=== PATIENT | male | born 1985 | race Caucasian/White ===

== ENCOUNTER → 2016-07-15 | Day surgery (SDC) | payer BC ==
[2016-07-14 10:27] VITALS: BMI 23.0
[~2016-07-15] VITALS: Ht 177.8 cm; Wt 72.7 kg
[~2016-07-15] MED LIST: LIDOCAINE HCL 2% 2 ML VIAL (20MG/ML) ONE; MESA1.2T PO; MIDAZOLAM HCL 1 MG/ML 2ML VIAL ONE; MULT-506 PO; ONDANSETRON INJ 2 MG/ML 2 ML VIAL ONE; PRED10TA PO; PROPOFOL IV EMULSION 10 MG/ML 20 ML VIAL IV ONE
[2016-07-15 13:51] VITALS: Ht 177.8 cm; Wt 72.7 kg
[2016-07-15 13:57] VITALS: TEMP 36.9
--- NOTE | 2016-07-15 14:44 | Endo History and Physical ---
History & Physical Date of Service: Jul 15, 2016. Chief Complaint: Hx dis of intestines, diarrhea Referring Physician: Dr. Linares History of Present Illness For Colonoscopy Past Surgical History Hx Cardiac Surgery: No Hx Internal Defibrillator: No Hx Pacemaker: No Hx Abdominal Surgery: No Hx of Implantable Prosthesis: No Hx Post-Op Nausea and Vomiting: No Hx Cancer Surgery: No Hx Thoracic Surgery: No Hx Orthopedic: No Hx Urinary Tract Surgery: No Family History None Social History Smoking Status: Never Smoker Hx Substance Use: No Hx Alcohol Use: Yes (SOCIALLY ON WEEKENDS) Allergies Coded Allergies: No Known Allergies (Verified , 07/15/16) Current Medications Reported Home Medications Medications Dose Route/Sig Max Daily Dose Days Date Category Dose Instructions Multivitamin (Multivitamins) Tab 1 Tab PO QAM 07/14/16 Reported Prednisone 10 Mg Tab 0 PO UD 07/14/16 Reported STERAPRED 10MG 12 DAY Lialda (Mesalamine) 1.2 Gm Tab 2 Tab PO BID 07/14/16 Reported Vital Signs Weight (Kilograms): 72.73 Height (Feet): 5 Height (Inches): 10 Date Time Temp Pulse Resp B/P Pulse Ox O2 Delivery O2 Flow Rate FiO2 07/15/16 13:57 36.9 97 20 140/75 98 Room Air Physical Exam General Appearance: WD/WN Respiratory/Chest: Respiratory effort: no dyspnea Cardiovascular: Heart Auscultation: RRR Abdomen: Inspection & Palpation: soft (IBD reassessment for colonoscopy)
--- NOTE | 2016-07-15 15:06 | Discharge Instructions ---
Endoscopy Patient Instructions Date / Procedure(s) Performed Jul 15, 2016. Colonoscopy Allergy Information Coded Allergies: No Known Allergies (Verified , 07/15/16) Discharge Date / Findings Jul 15, 2016. Colitis Medication Instructions Restart Stopped Medication(s): resume meds Reported Home Medications Medications Dose Route/Sig Max Daily Dose Days Date Category Dose Instructions Multivitamin (Multivitamins) Tab 1 Tab PO QAM 07/14/16 Reported Prednisone 10 Mg Tab 0 PO UD 07/14/16 Reported STERAPRED 10MG 12 DAY Lialda (Mesalamine) 1.2 Gm Tab 2 Tab PO BID 07/14/16 Reported Provider Instructions Activity Restrictions - No exercising or heavy lifting for 24 hours. - Do not drink alcohol the day of the procedure. - Do not drive a car or operate machinery until the day after the procedure. - Do not make any important decisions or sign important papers in 24 hours after the procedure. Following Day: - Return to full activity which may include returning to work/school. Diet Start your diet with liquids and light foods (jello, soup, juice, toast). Then eat your usual diet if not nauseated. Treatment For Common After Affects For mild abdominal pain, bloating, or excessive gas: - Rest - Eat lightly - Lie on right side Follow-Up Information Follow-up with Dr. Linares as scheduled Anesthesia Information What You Should Know You have had a procedure that required some medicine to reduce anxiety and discomfort. This treatment is called moderate sedation. After receiving the treatment, you may be sleepy, but you will be able to breathe on your own. The effects of the treatment may last for several hours. Follow these instructions along with Activity/Diet recommendations noted above: * Do NOT do anything where dizziness or clumsiness would be dangerous. * Rest quietly at home today, then you can be up and about tomorrow. * Have a responsible person stay with you the rest of today. * You may have had an I.V. today. If so, you may take the dressing off later today. Recommendations Call your doctor if: * Trouble breathing * Continuous vomiting for more than 24 hours * Temperature above 101 degrees * Severe abdominal pain or bloating * Pain not relieved by pain medicine ordered * There is increased drainage or redness from any incision * A large amount of rectal bleeding greater than 2-3 tablespoons. (If you had a polyp/s removed or have hemorrhoids, a small amount of blood - from the rectum is to be expected.) * You have any unanswered questions or concerns. IN THE EVENT OF A SERIOUS EMERGENCY, GO TO THE NEAREST EMERGENCY ROOM Your discharge instructions were prepared by provider Jarett Calderon. Patient Instructions Signature Page Marc Fitzpatrick Patient (or Guardian) Signature/Date: I have read and understand the instructions given to me by my caregivers. Caregiver/RN/Doctor Signature/Date: The above-named patient and/or guardian has received patient instructions on this date. + Original Patient Signature Page (only) stays with chart. Please make copy for patient.
--- NOTE | 2016-07-15 15:11 | GI REPORT ---
Procedure Date: 07/15/2016 2:38 PM Procedure: Colonoscopy Indications: Chronic diarrhea, Suspected Crohn's disease Medicines: Midazolam 2 mg IV, Zofran 4 mg IV, Propofol total dose 350 mg IV, Lidocaine 60 mg IV Complications: No immediate complications. Estimated Blood Loss: Estimated blood loss was minimal. Procedure: Pre-Anesthesia Assessment: - Prior to the procedure, a History and Physical was performed, and patient medications, allergies and sensitivities were reviewed. The patient's tolerance of previous anesthesia was reviewed. - The risks and benefits of the procedure and the sedation options and risks were discussed with the patient. All questions were answered and informed consent was obtained. After I obtained informed consent, the scope was passed under direct vision. Throughout the procedure, the patient's blood pressure, pulse, and oxygen saturations were monitored continuously. The Scope was introduced through the anus and advanced to the terminal ileum. The colonoscopy was performed without difficulty. The patient tolerated the procedure well. The quality of the bowel preparation was excellent. Findings: The terminal ileum appeared normal. Multiple diffuse non-bleeding aphthae were found in the entire colon. No stigmata of recent bleeding were seen. Biopsies were taken with a cold forceps for histology. Estimated blood loss was minimal. A diffuse area of moderately erythematous mucosa was found in the entire colon. Impression: - The examined portion of the ileum was normal. - Aphtha in the entire examined colon. Biopsied. - Erythematous mucosa in the entire examined colon. Recommendation: - Discharge patient to home (ambulatory). - Continue present medications. - Await pathology results. - Return to GI office in 2 weeks. Jarett Calderon M.D. Jarett Calderon MD 07/15/2016 3:11:51 PM This report has been signed electronically. Note Initiated On: 07/15/2016 2:38 PM I attest to the content of the Intraoperative Record and orders documented therein, exceptions below
--- NOTE | 2016-07-15 15:25 | Anesthesiology Progress Note ---
Anesthesia Post Op Note Date & Time Jul 15, 2016 at 15:26 Vital Signs Pain Intensity: 0 Vital Signs Past 12 Hours Date Time Temp Pulse Resp B/P Pulse Ox O2 Delivery O2 Flow Rate FiO2 07/15/16 15:10 98 16 98/61 95 Room Air 07/15/16 13:57 36.9 97 20 140/75 98 Room Air Notes Mental Status: alert / awake / arousable, participated in evaluation Pt Amnestic to Procedure: Yes Nausea / Vomiting: adequately controlled Pain: adequately controlled Airway Patency, RR, SpO2: stable & adequate BP & HR: stable & adequate Hydration State: stable & adequate Anesthetic Complications: no major complications apparent
[2016-07-15 15:40] VITALS: BP 121/82; PULSE 76; O2SAT 97
== END | disposition home or self-care (01) ==
LOC: C.GI 13:40
PROVIDERS: ATTEND Internal Medicine Gastroenterology
DX: K52.9 Noninfective gastroenteritis and colitis, unspecified (principal); K63.89 Other specified diseases of intestine; K21.9 Gastro-esophageal reflux disease without esophagitis; Z68.23 Body mass index [BMI] 23.0-23.9, adult

== ENCOUNTER → 2017-01-30 | Outpatient (CLI) | payer BC ==
[~2017-01-30] MED LIST changes: -LIDOCAINE HCL 2% 2 ML VIAL (20MG/ML) ONE; -MIDAZOLAM HCL 1 MG/ML 2ML VIAL ONE; -ONDANSETRON INJ 2 MG/ML 2 ML VIAL ONE; -PROPOFOL IV EMULSION 10 MG/ML 20 ML VIAL IV ONE
== END | disposition home or self-care (01) ==
LOC: C.MAMM 08:11
PROVIDERS: ATTEND Internal Medicine Gastroenterology
DX: Z51.81 Encounter for therapeutic drug level monitoring (principal); Z79.52 Long term (current) use of systemic steroids